=== PATIENT | female | born 1985 | race Caucasian/White ===

== ENCOUNTER → 2020-04-08 | Outpatient (CLI) | payer OTHER ==
[~2020-04-08] MED LIST: ALBUTEROL2.5 MG/3 M INH; AMOX TR-K CLV1 EAC3 PO; AMOXICILLIN500 M1 PO; ATROVENT HFA12.9 GM INH; BACTRIM DS TAB1 EACH PO; BACTROBAN OINT22 GM EXT; BUSPIRONE HCL5 MG PO; HYDROCODON-ACE1 EAC4 PO; IBUPROFEN600 MG PO; IBUPROFEN800 MG PO; IPRATROPIU0.2 MG/1 M INH; NAPROSYN500 MG PO; NORCO 7.5-3251 EACH PO; PREDNISONE20 MG PO; PROVENTIL HFA6.7 GM INH; TORADOL 10 MG T10 MG PO; ZOFRAN ODT 4 MG4 MG PO
== END ==
LOC: RAD 20:24
DX: M25.522 Pain in left elbow (principal)
CPT/HCPCS: 73080

== ENCOUNTER 2020-05-12 06:19 | Emergency (ER) | payer OTHER ==
[~2020-05-12 06:19] MED LIST changes: -AMOXICILLIN500 M1 PO; -BUSPIRONE HCL5 MG PO; -HYDROCODON-ACE1 EAC4 PO; -NAPROSYN500 MG PO; -TORADOL 10 MG T10 MG PO
[2020-05-12] MEDS ORDERED: HYDROCODON-ACE1 EAC4 PO (09:11)
== END 2020-05-12 09:42 | disposition home or self-care (01) ==
LOC: ER1 06:19
DX: S69.92XA Unspecified injury of left wrist, hand and finger(s), initial encounter (principal); S59.902A Unspecified injury of left elbow, initial encounter; J45.909 Unspecified asthma, uncomplicated; F17.290 Nicotine dependence, other tobacco product, uncomplicated; Z88.1 Allergy status to other antibiotic agents; W01.0XXA Fall on same level from slipping, tripping and stumbling without subsequent striking against object, initial encounter
CPT/HCPCS: 29105; 73080; 73090; 73110; 99283

== ENCOUNTER 2020-07-28 02:59 | Emergency (ER) | payer OTHER ==
[~2020-07-28 02:59] MED LIST changes: +HYDROCODON-ACE1 EAC4 PO
[2020-07-28 03:57] LABS: HEMOGLOBIN 12.5 gm/dl (12.3-15.3); RED BLOOD COUNT 4.23 M/UL (4.00-5.10); WHITE BLOOD COUNT 9.8 K/UL (4.5-11.0)
[2020-07-28 04:23] LABS: BUN/CREATININE RATIO 16 (0-10)
== END 2020-07-28 06:30 | disposition home or self-care (01) ==
LOC: ER1 02:59
PROVIDERS: Student in an Organized Health Care Education/Training Program
DX: J45.909 Unspecified asthma, uncomplicated (principal); R51.9 Headache, unspecified; R41.0 Disorientation, unspecified; Z20.822 Contact with and (suspected) exposure to COVID-19; F17.290 Nicotine dependence, other tobacco product, uncomplicated; Z88.1 Allergy status to other antibiotic agents; Z88.8 Allergy status to other drugs, medicaments and biological substances
CPT/HCPCS: 0240U; 70450; 71045; 80053; 82550; 82553; 83605; 83690; 83874; 84484; 84702; 85025; 85652; 86140; 93005; 96374; 99285; J2765

== ENCOUNTER 2020-09-26 18:16 | Emergency (ER) | payer OTHER ==
[2020-09-26 19:09] LABS: HEMOGLOBIN 12.9 gm/dl (12.3-15.3); RED BLOOD COUNT 4.11 M/UL (4.00-5.10); WHITE BLOOD COUNT 9.2 K/UL (4.5-11.0)
[2020-09-26 19:37] LABS: BUN/CREATININE RATIO 21 (0-10)
[2020-09-26] MEDS ORDERED: AMOXICILLIN500 M1 PO (22:39)
[2020-09-26] MEDS ORDERED: BUSPIRONE HCL5 MG PO (22:39)
[2020-09-26] MEDS ORDERED: NAPROSYN500 MG PO (22:39)
[2020-09-26] MEDS ORDERED: TORADOL 10 MG T10 MG PO (22:48)
== END 2020-09-26 23:00 | disposition home or self-care (01) ==
LOC: ER1 18:16
PROVIDERS: Physician Assistant
DX: R07.89 Other chest pain (principal); K02.9 Dental caries, unspecified; R00.2 Palpitations; K05.10 Chronic gingivitis, plaque induced; J45.909 Unspecified asthma, uncomplicated; F17.200 Nicotine dependence, unspecified, uncomplicated; Z87.442 Personal history of urinary calculi; Z88.1 Allergy status to other antibiotic agents; Z88.8 Allergy status to other drugs, medicaments and biological substances; Z79.899 Other long term (current) drug therapy
CPT/HCPCS: 71045; 80053; 82550; 82553; 83735; 83874; 84439; 84443; 84484; 85025; 85379; 93005; 96374; 99285; J1885; Q0177

== ENCOUNTER 2020-11-04 00:01 | Emergency (ER) | payer OTHER ==
[~2020-11-04 00:01] MED LIST changes: +AMOXICILLIN500 M1 PO; +BUSPIRONE HCL5 MG PO; +NAPROSYN500 MG PO; +TORADOL 10 MG T10 MG PO
== END 2020-11-04 02:15 | disposition left against medical advice (07) ==
LOC: ER1 00:01
DX: Z53.21 Procedure and treatment not carried out due to patient leaving prior to being seen by health care provider (principal); U07.1 COVID-19
CPT/HCPCS: U0002

== ENCOUNTER 2020-11-07 05:09 | Emergency (ER) | payer OTHER ==
[2020-11-07 05:35] LABS: HEMOGLOBIN 11.8 gm/dl (12.3-15.3); RED BLOOD COUNT 3.78 M/UL (4.00-5.10)
[2020-11-07 06:06] LABS: BUN/CREATININE RATIO 14 (0-10)
== END 2020-11-07 05:40 | disposition home or self-care (01) ==
LOC: ER1 05:09
PROVIDERS: Physician Assistant
DX: U07.1 COVID-19 (principal); J45.909 Unspecified asthma, uncomplicated; Z88.1 Allergy status to other antibiotic agents; F17.210 Nicotine dependence, cigarettes, uncomplicated
CPT/HCPCS: 80053; 85025; 93005; 99285

== ENCOUNTER 2021-02-05 20:10 | Emergency (ER) | payer OTHER ==
[2021-02-05] MEDS ORDERED: IBU800 MG PO (22:05)
== END 2021-02-05 22:20 | disposition home or self-care (01) ==
LOC: ER1 20:10
DX: S93.402A Sprain of unspecified ligament of left ankle, initial encounter (principal); W22.8XXA Striking against or struck by other objects, initial encounter
CPT/HCPCS: 72170; 73552; 73560; 73590; 73600; 99283

== ENCOUNTER 2021-07-27 18:04 | Emergency (ER) | payer OTHER ==
[~2021-07-27 18:04] MED LIST changes: +IBU800 MG PO
== END 2021-07-27 23:33 | disposition left against medical advice (07) ==
LOC: ER1 18:04
DX: Z53.21 Procedure and treatment not carried out due to patient leaving prior to being seen by health care provider (principal)